=== PATIENT | male | born 1940 | race Caucasian/White ===

== ENCOUNTER 2023-09-10 10:30 | Outpatient (RCR) | payer MEDICARE, BC, SELFPAY ==
[2023-09-10] VITALS (12 sets, daily range): BP systolic 113–128; BP diastolic 65–79
[2023-09-10 11:00] LABS: % Basophils 0.8 % (0-2); % Eosinophils 3.8 % (0-6); % Immature Granulocytes 0.2 % (0-0.5); % Lymphocytes 22.5 % (20.5-51.1); % Monocytes 15.7 % (1.7-9.3); Absolute Eosinophils 0.2 10^3/uL (0-0.7); Absolute Lymphocytes 1.2 10^3/uL (1.2-3.4); Absolute Monocytes 0.8 10^3/uL (0.1-0.6); Hematocrit 40.6 % (39.0-52.0); Hemoglobin 13.9 g/dL (13.0-18.0); Mean Corp Hgb Conc. 34.2 g/dL (33.0-37.0); Mean Corpuscular Hgb 35.4 pg (27.0-31.0); Mean Corpuscular Volume 103.3 fL (80.0-94.0); Mean Platelet Volume 10.5 fL (7.4-10.4); Platelet Count 193 10^3/uL (130-400); Red Blood Cell Count 3.93 10^6/uL (4.70-6.10); Red Cell Dist. Width 13.2 % (11.5-14.5); White Blood Cell Count 5.2 10^3/uL (4.8-10.8)
[2023-09-10] MEDS: NSS 250 IV (11:08)
[2023-09-10] MEDS: REMICADE 250 MG IV (11:08)
[2023-09-10] MEDS: TYLENOL 650 MG PO (11:08)
[2023-09-10] MEDS: BENADRYL 25 MG PO (11:08)
[2023-09-10 12:04] LABS: ALT (SGPT) 16 U/L (0-50); AST (SGOT) 22 U/L (17-59); Albumin 4.3 g/dl (3.5-5.0); Alkaline Phosphatase 60 U/L (38-126); Total Bilirubin 0.6 mg/dl (0.2-1.3)
== END 2023-09-10 15:31 | disposition home or self-care (01) ==
LOC: OID 10:30
PROVIDERS: ATTENDING PHYSICIAN Specialist; FAMILY PHYSICIAN Internal Medicine
DX: M06.00 Rheumatoid arthritis without rheumatoid factor, unspecified site (principal); M06.09 Rheumatoid arthritis without rheumatoid factor, multiple sites
CPT/HCPCS: 80076; 85025; 96413; 96415; J1745

== ENCOUNTER 2023-11-13 06:52 | Day surgery (SDC) | payer MEDICARE, BC, SELFPAY ==
[2023-11-13 07:32] VITALS: BMI 26.3
== END 2023-11-13 08:40 | disposition home or self-care (01) ==
LOC: CATH 06:52
PROVIDERS: ATTENDING PHYSICIAN Internal Medicine Cardiovascular Disease; FAMILY PHYSICIAN Internal Medicine; OTHER PHYSICIAN Internal Medicine Cardiovascular Disease
DX: I48.3 Typical atrial flutter (principal); I48.0 Paroxysmal atrial fibrillation; I10 Essential (primary) hypertension; I49.1 Atrial premature depolarization; Z79.01 Long term (current) use of anticoagulants; G47.33 Obstructive sleep apnea (adult) (pediatric)
CPT/HCPCS: 92960; 93005

== ENCOUNTER 2024-01-26 08:24 | Day surgery (SDC) | payer MEDICARE, BC, SELFPAY ==
[2024-01-23 10:37] VITALS: BMI 26.5
[2024-01-26] VITALS (20 sets, daily range): BP systolic 111–130; BP diastolic 71–87; BMI 23.7
[2024-01-26 12:01] LABS: ACT-LR - POC 273 Seconds (116-155)
[2024-01-26 12:20] LABS: ACT-LR - POC 350 Seconds (116-155)
[2024-01-26 12:45] LABS: ACT-LR - POC 351 Seconds (116-155)
[2024-01-26 13:22] LABS: ACT-LR - POC 302 Seconds (116-155)
[2024-01-26 13:42] LABS: ACT-LR - POC 295 Seconds (116-155)
--- NOTE | 2024-01-26 14:46 | ITS.CL.ABL ---
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
Ablation
Procedure Report:
ELECTROPHYSIOLOGIC STUDY AND POSSIBLE ABLATION
DATE: January 26, 2024
Primary Care Provider: Dr. Layton Jacobs
INDICATION:
Symptomatic Atrial Fibrillation.
Persistent
HISTORY: See H and P.
Symptomatic AF, poorly controlled with attempted medical therapy. Prior PVI 2017 and 2018. Prior dual-chamber permanent pacemaker implantation for sick sinus syndrome.
Recurrent atrial fibrillation, symptomatic. This despite antiarrhythmic drug therapy with flecainide.
HAS-BLED: 1
Age
CHADSVASc: 3
HTN
Age
PRESENTING RHYTHM: SR
HISTORY: See H and P.
Symptomatic AF, poorly controlled with attempted medical therapy.
ANTIARRHYTHMIC DRUG: Flecainide
ANTICOAGULATION: Apixaban
'TIME-OUT': called and confirmed.
SEDATION/ANESTHESIA: provided via the anesthesia department using general anesthesia.
PROCEDURE:
Ultrasound Guidance performed by dc was utilized for femoral venous Vascular Access b/l.
A decapolar CS catheter was placed within the CS for mapping and pacing.
The intracardiac ultrasound catheter was positioned in the RA for continuous intracardiac ultrasound imaging.
Heparin bolus and infusion to target ACT at 300 -350 seconds was administered. Transseptal puncture was performed. This entailed advancing a sheath with dilator into the superior vena cava and withdrawing both (monitoring intracardiac ultrasound,
fluoroscopy and tip pressure) with the tip oriented toward the atrial septum. The fossa ovalis was engaged (indicated by sudden displacement of the sheath tip as well as tenting of the fossa seen on intracardiac ultrasound).
[employer] transseptal system was used. Left atrial catheter position was confirmed by echocardiographic imaging, pressure monitoring (LA mean pressure 5 mm Hg) and fluoroscopy. The sheath was advanced over the dilator and positioned in the left
atrium. At time of transseptal puncture he developed an atrial tachycardia at a cycle length of 400 ms
The multipolar mapping catheter was initially positioned through the transseptal sheath for high density mapping. Extensive activation as well as voltage mapping of the left and right atrium was performed. Entrainment from left and right atrial
sites was also performed. The tachycardia is a focal left atrial tachycardia arising from the interatrial septum anterior to the right sided pulmonary veins and close to the mitral valve annulus at approximately 10 o'clock position.
Geometry and voltage mapping was performed using the Qui.lt multipolar grid catheter. Navex was utilized for three-dimensional electroanatomical mapping.
A 3-D map was created using Navex. A 3-D reconstructed CT image was compared to the 3-D Navex map to assist in anatomic evaluation, mapping and ablation.
The [employer] Pulse Select PFA catheter and system was used for cardiac ablation. Catheter positioning was guided and confirmed using both I.C.E. and fluoroscopy.
Initially pulse electric field energy was delivered to this area but failed to alter the tachycardia. Patient is known to have recurrent atrial fibrillation and therefore neck step was to ablate the posterior wall of the left atrium. Of note the
pulmonary veins remained isolated except for an area of reconnection at the RSPV upper anterior quadrant. Pulse electric field energy was delivered to re-isolate the RSPV and to electrically isolate the posterior wall of the left atrium.
Tachycardia continued. Additional pulsed electric field energy was delivered to the area of earliest activation of the focal atrial tachycardia. This terminated the atrial tachycardia into a different tachycardia cycle length 450 ms. Entrainment
mapping as well as activation mapping finds this to be mitral annular flutter with a cord or of slow activation on the anterior septum between the eron of the right sided pulmonary veins in the mitral valve annulus. Pulsed electric field energy
delivery to this area slowed and then terminated the tachycardia. Programmed electrical stimulation then failed to induce any sustained arrhythmias.
Of note the Medtronic dual-chamber permanent pacemaker was interrogated prior to EP study and ablation and reinterrogated once the procedure was completed and all catheters removed from the body. This demonstrates normal stable function of the
permanent pacemaker and lead system with atrial lead impedance 437, RV lead impedance 400, atrial threshold 0.75 at 0.4 and RV threshold 1 V at 0.4 ms. Measured atrial amplitude is 1 mV and RV amplitude is 18 mV.
I.C.E. :
Pre-Ablation Post-Ablation
LVEF: 55 % 55 %
WMA: none none
Pericardial effusion: trace post trace post
COMPLICATIONS:
None
SUMMARY:
- Mapping and ablation to isolate the PVs (re-isolation RSPV)
- Additional AF ablation set after PVI (LA posterior wall ablation)
- Mapping and ablation of second and third tachycardias (LA septal tachycardia and LA mitral valve flutter)
- 3-D Electroanatomical Mapping
- Intracardiac Ultrasound
- Interrogation and reprogramming of dual-chamber permanent pacemaker
Post ablation, I discussed today's findings and results with the patient's , Charley
RECOMMENDATIONS:
- Observe in monitored bed.
- Maintain oral anticoagulation.
- Discontinue flecainide, continue metoprolol.
- Office visit with me in 3 months.
Copy to:
Dr. Layton Jacobs
--- NOTE | 2024-01-27 16:29 | W.PN.UPDATE ---
Update Note
Progress Note Update
Late entry post PVI note- Pt seen on 01/25 at 1730.
Pt seen post PVI. Bilat groin sites without ht/bleeding. OOB ambulating, urinating without difficulty. Post EKG APaced 70s. Resume eliquis tonight. Discontinue flecainide at this time. Followup at [facility] as scheduled. Home later today if groin
sites/tele remain stable.
== END 2024-01-26 18:23 | disposition home or self-care (01) ==
LOC: CATH 08:24
PROVIDERS: ATTENDING PHYSICIAN Internal Medicine Cardiovascular Disease; FAMILY PHYSICIAN Internal Medicine
DX: I48.19 Other persistent atrial fibrillation (principal); I48.92 Unspecified atrial flutter; I10 Essential (primary) hypertension; E78.5 Hyperlipidemia, unspecified; Z92.3 Personal history of irradiation; Z90.49 Acquired absence of other specified parts of digestive tract; Z95.0 Presence of cardiac pacemaker; R06.09 Other forms of dyspnea; I49.5 Sick sinus syndrome; Z85.46 Personal history of malignant neoplasm of prostate; D68.59 Other primary thrombophilia; M06.9 Rheumatoid arthritis, unspecified; M85.80 Other specified disorders of bone density and structure, unspecified site; E04.1 Nontoxic single thyroid nodule; N40.0 Benign prostatic hyperplasia without lower urinary tract symptoms; H40.9 Unspecified glaucoma; G47.33 Obstructive sleep apnea (adult) (pediatric); Z79.01 Long term (current) use of anticoagulants; Z79.899 Other long term (current) drug therapy; K66.0 Peritoneal adhesions (postprocedural) (postinfection); Z87.891 Personal history of nicotine dependence; I44.4 Left anterior fascicular block; Z98.890 Other specified postprocedural states; I31.39 Other pericardial effusion (noninflammatory)
CPT/HCPCS: C1732; C1733; C1769; C1730; C1894; C1892; C1766; 76937; 85347; 93005; 93655; 93656; 93657

== ENCOUNTER 2024-04-14 09:48 | Outpatient (RCR) | payer MEDICARE, BC, SELFPAY ==
[2024-03-31] VITALS (11 sets, daily range): BP systolic 96–132; BP diastolic 54–71
[2024-03-31] MEDS: BENADRYL 25 MG PO (09:41)
[2024-03-31] MEDS: TYLENOL 650 MG PO (09:41)
[2024-03-31] MEDS: REMICADE 250 MG IV (09:42)
[2024-03-31] MEDS: NSS 250 IV (09:42)
[2024-03-31 10:46] LABS: % Basophils 0.5 % (0-2); % Eosinophils 1.9 % (0-6); % Immature Granulocytes 0.4 % (0-0.5); % Neutrophils 74.2 % (42.2-75.2); Absolute Eosinophils 0.2 10^3/uL (0-0.7); Absolute Lymphocytes 0.9 10^3/uL (1.2-3.4); Hematocrit 31.3 % (39.0-52.0); Hemoglobin 10.8 g/dL (13.0-18.0); Mean Corp Hgb Conc. 34.5 g/dL (33.0-37.0); Mean Corpuscular Hgb 35.5 pg (27.0-31.0); Mean Platelet Volume 10.2 fL (7.4-10.4); Nucleated Red Blood Cells % 0 % (-); Platelet Count 299 10^3/uL (130-400); Red Blood Cell Count 3.04 10^6/uL (4.70-6.10); Red Cell Dist. Width 13.2 % (11.5-14.5); White Blood Cell Count 8.1 10^3/uL (4.8-10.8)
[2024-03-31 11:06] LABS: ALT (SGPT) 15 U/L (0-50); AST (SGOT) 22 U/L (17-59); Albumin 3.9 g/dl (3.5-5.0); Alkaline Phosphatase 57 U/L (38-126); Direct Bilirubin 0.2 mg/dl (0.0-0.4); Total Bilirubin 0.5 mg/dl (0.2-1.3); Total Protein 6.9 g/dl (6.3-8.2)
[2024-04-14] VITALS (11 sets, daily range): BP systolic 99–112; BP diastolic 60–73
[2024-04-14] MEDS: NSS 250 IV (10:16)
[2024-04-14] MEDS: BENADRYL 25 MG PO (10:16)
[2024-04-14] MEDS: TYLENOL 650 MG PO (10:16)
[2024-04-14] MEDS: REMICADE 250 MG IV (10:18)
== END 2024-04-15 09:40 | disposition home or self-care (01) ==
LOC: OID 09:48
PROVIDERS: ATTENDING PHYSICIAN Specialist; FAMILY PHYSICIAN Internal Medicine
DX: M06.00 Rheumatoid arthritis without rheumatoid factor, unspecified site (principal); M06.09 Rheumatoid arthritis without rheumatoid factor, multiple sites
CPT/HCPCS: 36415; 80076; 85025; 96413; 96415; J1745

== ENCOUNTER 2024-05-12 10:00 | Outpatient (RCR) | payer MEDICARE, BC, SELFPAY ==
[2024-05-12] VITALS (10 sets, daily range): BP systolic 101–119; BP diastolic 58–76
[2024-05-12] MEDS: NSS 250 IV (10:26)
[2024-05-12] MEDS: BENADRYL 25 MG PO (10:26)
[2024-05-12] MEDS: TYLENOL 650 MG PO (10:26)
[2024-05-12] MEDS: REMICADE 250 MG IV (10:39)
== END 2024-05-13 10:18 | disposition home or self-care (01) ==
LOC: OID 10:00
PROVIDERS: ATTENDING PHYSICIAN Specialist; FAMILY PHYSICIAN Internal Medicine
DX: M06.00 Rheumatoid arthritis without rheumatoid factor, unspecified site (principal); M06.09 Rheumatoid arthritis without rheumatoid factor, multiple sites
CPT/HCPCS: 96413; 96415; J1745

== ENCOUNTER 2024-07-01 09:55 | Outpatient (RCR) | payer MEDICARE, BC, SELFPAY ==
[2024-07-01] VITALS (10 sets, daily range): BP systolic 105–123; BP diastolic 62–70
[2024-07-01 10:16] LABS: % Basophils 0.7 % (0-2); % Lymphocytes 28.2 % (20.5-51.1); % Monocytes 13.2 % (1.7-9.3); % Neutrophils 52.9 % (42.2-75.2); Absolute Eosinophils 0.2 10^3/uL (0-0.7); Absolute Lymphocytes 1.3 10^3/uL (1.2-3.4); Absolute Monocytes 0.6 10^3/uL (0.1-0.6); Absolute Neutrophils 2.4 10^3/uL (1.4-6.5); Hematocrit 39.4 % (39.0-52.0); Hemoglobin 13.2 g/dL (13.0-18.0); Mean Corp Hgb Conc. 33.5 g/dL (33.0-37.0); Mean Corpuscular Hgb 34.4 pg (27.0-31.0); Mean Corpuscular Volume 102.6 fL (80.0-94.0); Mean Platelet Volume 10.6 fL (7.4-10.4); Platelet Count 185 10^3/uL (130-400); Red Blood Cell Count 3.84 10^6/uL (4.70-6.10); Red Cell Dist. Width 14.3 % (11.5-14.5); White Blood Cell Count 4.6 10^3/uL (4.8-10.8)
[2024-07-01] MEDS: NSS 250 IV (10:16)
[2024-07-01] MEDS: REMICADE 250 MG IV (10:17)
[2024-07-01] MEDS: BENADRYL 25 MG PO (10:17)
[2024-07-01] MEDS: TYLENOL 650 MG PO (10:17)
[2024-07-01 11:18] LABS: ALT (SGPT) 19 U/L (0-50); AST (SGOT) 29 U/L (17-59); Albumin 4.1 g/dl (3.5-5.0); Alkaline Phosphatase 63 U/L (38-126); Direct Bilirubin 0.1 mg/dl (0.0-0.4); Total Bilirubin 0.4 mg/dl (0.2-1.3); Total Protein 6.8 g/dl (6.3-8.2)
== END 2024-07-02 09:25 | disposition home or self-care (01) ==
LOC: OID 09:55
PROVIDERS: ATTENDING PHYSICIAN Specialist; FAMILY PHYSICIAN Internal Medicine
DX: M06.00 Rheumatoid arthritis without rheumatoid factor, unspecified site (principal); M06.09 Rheumatoid arthritis without rheumatoid factor, multiple sites
CPT/HCPCS: 80076; 85025; 96413; 96415; J1745

== ENCOUNTER 2024-08-12 10:03 | Outpatient (RCR) | payer MEDICARE, BC, SELFPAY ==
[2024-08-12] VITALS (10 sets, daily range): BP systolic 92–112; BP diastolic 57–76
[2024-08-12] MEDS: NSS 250 IV (10:23)
[2024-08-12] MEDS: TYLENOL 650 MG PO (10:24)
[2024-08-12] MEDS: REMICADE 250 MG IV (10:25)
[2024-08-12] MEDS: BENADRYL 25 MG PO (10:25)
== END 2024-08-13 10:11 | disposition home or self-care (01) ==
LOC: OID 10:03
PROVIDERS: ATTENDING PHYSICIAN Specialist; FAMILY PHYSICIAN Internal Medicine
DX: M06.00 Rheumatoid arthritis without rheumatoid factor, unspecified site (principal); M06.09 Rheumatoid arthritis without rheumatoid factor, multiple sites; I48.91 Unspecified atrial fibrillation; Z79.01 Long term (current) use of anticoagulants
CPT/HCPCS: 96413; 96415; J1745

== ENCOUNTER 2024-08-18 14:51 | Emergency (ER) | payer MEDICARE, BC, SELFPAY ==
[2024-08-18 14:57] VITALS: BP 123/79
--- NOTE | 2024-08-18 18:01 | ED.GENMED ---
History of Present Illness
General
Chief Complaint: Head Injury
Source: patient
Time Seen by Provider: 08/18/24 17:36
History of Present Illness
History of Present Illness:
84-year-old male with past medical history of atrial fibrillation, on Eliquis, previous prostate cancer status post radiation presenting to the emergency department for evaluation after he was hiking with his and sustained an accidental fall
resulting in laceration just above the right eyebrow. Bleeding controlled, tetanus up-to-date, no other injuries sustained. Patient denies any loss consciousness, significant headache, vomiting or any other concerns.
Past History
Past History
ED Past Medical History: Arrthythmia (afib) and HTN
ED Past Surgical History: Appendectomy, Tonsilectomy, Urological and Other
Social History
Tobacco: Non-smoker
Alcohol: None
Drug: None
Personal:
Living: with family
Employment: Employed
Family History
Family History: Negative Early CAD
Review of Systems
Review of Systems
All Other Systems: ROS reviewed and negative except as documented in HPI and ROS
Phy Exam
Physical Exam
Physical Exam:
GENERAL: Alert , in no apparent distress
EYE: conjunctiva clear
Head: Stellate laceration just above the right eyebrow measuring 1 cm in size, no active bleeding
NECK: Supple, no midline tenderness
ENT: mmm.
LUNGS: no acute respiratory distress
NEUROLOGICAL: Alert and oriented
SKIN: Warm and dry, skin intact.
MUSCULOSKELETAL: well perfused.
PSYCH: Normal and appropriate interaction.
Scores
Heart Failure Risk
Heart Failure Risk Score: Not Applicable
Heart Score for Chest Pain Patients
STEMI patient?: Not applicable
Withdrawal Assessment of Alcohol
Withdrawal Assessment Completed?: Not applicable
Course
Orders/Labs/Results
Orders:
Orders
08/18/24 14:[address] [CT Head W/o Iv Contrast] Urgent
Comment:
Reason For Exam: fall on thinners
Vital Signs
Initial and Last Documented VS:
Initial Vital Signs
Temp Pulse Resp BP Pulse Ox
97.2 F 82 20 123/79 98
08/18/24 14:57 08/18/24 14:57 08/18/24 14:57 08/18/24 14:57 08/18/24 14:57
Last Documented Vital Signs
Temp Pulse Resp BP Pulse Ox
97.2 F 82 20 123/79 98
08/18/24 14:57 08/18/24 14:57 08/18/24 14:57 08/18/24 14:57 08/18/24 14:57
Procedures
Laceration Closure
Right Eye brow:
Status of Wound: clean
Size of Wound in cm: 1
Description of Wound Edges: sharp
Preparation: cleaned with saline
Anesthesia: 1% Lidocaine with epi
Type of Closure: layered closure
Skin Closure Material: 6-0 nylon (4) and 6-0 vicryl (1)
MDM/Problems Addressed
Differential Diagnosis Includes:
superficial laceration, ICH, calvarial fracture, concussion
MDM/Problems Addressed:
84-year-old male presenting the ER for evaluation following an accidental slip and fall resulting in head injury/forehead laceration. Laceration repaired as above without difficulty. CT of the head was ordered due to patient's anticoagulated
status and ultimately negative for any acute intracranial pathology. Patient and were advised on wound care as well as return precautions to the ER. Suture removal in 5 to 7 days. Stable for discharge home.
*Radiology
Radiology exam reviewed: radiology read reviewed
*Pulse Oximetry
Patient hypoxic: no
*Critical Care Note
Total Time (30-74mins, 75-104mins- exclusive of procedures): Not Applicable
ED Attending Note
-
Portions of this chart may have been created with voice recognition software.� Occasional wrong word or��sound alike� substitutions may have occurred due to the inherent limitations of voice recognition software.
Discharge Plan
Departure
Patient Disposition: Home (Routine Discharge)
Date of Disposition: 08/18/24
Time of Disposition: 18:01
Patient with high blood pressure during this ER visit?: No
Discharge Problem:
Accidental fall, Forehead laceration
Instructions: Laceration Repair With Stitches (DC)
Prescriptions:
No Action
tamsulosin 0.4 MG capsule
0.4 mg PO HS
Eliquis 5 MG tablet
5 mg PO BID
latanoprost 1 DROP drops
1 drp BOTH EYES HS
lisinopril 5 MG tablet
5 mg PO DAILY
folic acid 0.4 MG tablet
0.4 mg PO DAILY
methotrexate sodium 2.5 MG tablet
15 mg PO TU
cyanocobalamin (vitamin B-12) 5,000 mcg Capsule
5,000 mcg PO DAILY
metoprolol succinate 25 MG tablet extended release 24 hr
25 mg PO BID
flecainide 50 mg Tablet
100 mg PO Q12H
amlodipine 5 mg Tablet
5 mg PO DAILY
cholecalciferol (vitamin D3) [Vitamin D3] 25 mcg (1,000 unit) Tablet
25 mcg PO HS
tadalafil [Cialis] 10 mg Tablet
10 mg PO DAILY PRN (Reason: ED)
Activity Restrictions/Additional Instructions:
Suture removal in 5-7 days
Interventions
Interventions:
*Risk Screen - Suicide Last Done: 08/18/24 14:57
*General Assessment Last Done: 08/18/24 18:06
*Neglect/Abuse Screening Last Done: 08/18/24 18:10
ED- Fall Risk Assessment Last Done: 08/18/24 18:05
*ED COVID-19 Vaccine History Last Done: 08/18/24 18:06
*Nursing Disposition Last Done: 08/18/24 19:02
ED- Neurological Assessment Last Done: 08/18/24 18:06
ED-Skin Assessment Last Done: 08/18/24 18:06
Discharge Date and Time
Discharge Date/Time: 08/18/24 18:20
Print Language: ITALIAN
--- NOTE | 2024-08-18 18:15 | EDRN ---
Reviewed discharge instructions with patient. Verbalized understanding. Ambulated with steady gait to the lobby.
== END 2024-08-18 18:20 | disposition home or self-care (01) ==
LOC: EMR 14:51
PROVIDERS: EMERGENCY PHYSICIAN Emergency Medicine; FAMILY PHYSICIAN Internal Medicine
DX: S01.81XA Laceration without foreign body of other part of head, initial encounter (principal); W01.0XXA Fall on same level from slipping, tripping and stumbling without subsequent striking against object, initial encounter; Y93.01 Activity, walking, marching and hiking; I48.91 Unspecified atrial fibrillation; I10 Essential (primary) hypertension; Z79.01 Long term (current) use of anticoagulants; Z85.46 Personal history of malignant neoplasm of prostate; Z90.49 Acquired absence of other specified parts of digestive tract; Z92.3 Personal history of irradiation
CPT/HCPCS: 99284; 12051; 70450

== ENCOUNTER → 2024-09-14 16:54 | Outpatient (REF) | payer MEDICARE, BC, SELFPAY | LOC: CLAB 16:54 | PROVIDERS: ATTENDING PHYSICIAN Surgery | DX: K61.1 Rectal abscess (principal) | CPT/HCPCS: 87075 ==

== ENCOUNTER 2024-09-21 09:58 | Outpatient (RCR) | payer MEDICARE, BC, SELFPAY ==
[2024-09-21] VITALS (11 sets, daily range): BP systolic 103–125; BP diastolic 62–82
[2024-09-21] MEDS: TYLENOL 650 MG PO (10:27)
[2024-09-21] MEDS: BENADRYL 25 MG PO (10:28)
[2024-09-21] MEDS: NSS 250 IV (10:28)
[2024-09-21] MEDS: REMICADE 250 MG IV (10:40)
[2024-09-21 11:55] LABS: % Basophils 0.6 % (0-2); % Eosinophils 2.5 % (0-6); % Immature Granulocytes 0.2 % (0-0.5); % Lymphocytes 28.6 % (20.5-51.1); % Monocytes 12.2 % (1.7-9.3); % Neutrophils 55.9 % (42.2-75.2); Absolute Eosinophils 0.1 10^3/uL (0-0.7); Absolute Lymphocytes 1.4 10^3/uL (1.2-3.4); Absolute Monocytes 0.6 10^3/uL (0.1-0.6); Absolute Neutrophils 2.7 10^3/uL (1.4-6.5); Hematocrit 36.9 % (39.0-52.0); Hemoglobin 12.6 g/dL (13.0-18.0); Mean Corp Hgb Conc. 34.1 g/dL (33.0-37.0); Mean Corpuscular Hgb 35.6 pg (27.0-31.0); Mean Corpuscular Volume 104.2 fL (80.0-94.0); Mean Platelet Volume 10.8 fL (7.4-10.4); Platelet Count 236 10^3/uL (130-400); Red Blood Cell Count 3.54 10^6/uL (4.70-6.10); Red Cell Dist. Width 13.1 % (11.5-14.5); White Blood Cell Count 4.8 10^3/uL (4.8-10.8)
[2024-09-21 12:42] LABS: ALT (SGPT) 22 U/L (0-50); AST (SGOT) 26 U/L (17-59); Albumin 4.2 g/dl (3.5-5.0); Alkaline Phosphatase 58 U/L (38-126); Direct Bilirubin 0.3 mg/dl (0.0-0.4); Total Bilirubin 0.6 mg/dl (0.2-1.3); Total Protein 6.6 g/dl (6.3-8.2)
== END 2024-09-22 09:43 | disposition home or self-care (01) ==
LOC: OID 09:58
PROVIDERS: ATTENDING PHYSICIAN Specialist; FAMILY PHYSICIAN Internal Medicine
DX: M06.00 Rheumatoid arthritis without rheumatoid factor, unspecified site (principal); M06.09 Rheumatoid arthritis without rheumatoid factor, multiple sites
CPT/HCPCS: 80076; 85025; 96413; 96415; J1745

== ENCOUNTER 2024-11-12 10:00 | Outpatient (RCR) | payer MEDICARE, BC, SELFPAY ==
[2024-11-12] VITALS (11 sets, daily range): BP systolic 102–117; BP diastolic 62–73
[2024-11-12] MEDS: TYLENOL 650 MG PO (10:25)
[2024-11-12] MEDS: BENADRYL 25 MG PO (10:26)
[2024-11-12] MEDS: NSS 250 IV (10:26)
[2024-11-12] MEDS: REMICADE 250 MG IV (10:39)
== END 2024-11-15 08:24 | disposition home or self-care (01) ==
LOC: OID 10:00
PROVIDERS: ATTENDING PHYSICIAN Specialist; FAMILY PHYSICIAN Internal Medicine
DX: M06.09 Rheumatoid arthritis without rheumatoid factor, multiple sites (principal)
CPT/HCPCS: 96365; 96366; 96367; J1745

== ENCOUNTER 2024-12-24 09:49 | Outpatient (RCR) | payer MEDICARE, BC, SELFPAY ==
[2024-12-24] VITALS (10 sets, daily range): BP systolic 112–120; BP diastolic 67–78
[2024-12-24 10:46] LABS: % Basophils 0.9 % (0-2); % Eosinophils 3.2 % (0-6); % Immature Granulocytes 0.2 % (0-0.5); % Lymphocytes 25.2 % (20.5-51.1); % Monocytes 13.6 % (1.7-9.3); % Neutrophils 56.9 % (42.2-75.2); Absolute Eosinophils 0.2 10^3/uL (0-0.7); Absolute Lymphocytes 1.2 10^3/uL (1.2-3.4); Absolute Monocytes 0.6 10^3/uL (0.1-0.6); Absolute Neutrophils 2.7 10^3/uL (1.4-6.5); Hematocrit 37.5 % (39.0-52.0); Hemoglobin 13.1 g/dL (13.0-18.0); Mean Corp Hgb Conc. 34.9 g/dL (33.0-37.0); Mean Corpuscular Hgb 36.1 pg (27.0-31.0); Mean Corpuscular Volume 103.3 fL (80.0-94.0); Mean Platelet Volume 10.9 fL (7.4-10.4); Nucleated Red Blood Cells % 0 % (-); Platelet Count 167 10^3/uL (130-400); Red Blood Cell Count 3.63 10^6/uL (4.70-6.10); Red Cell Dist. Width 13.8 % (11.5-14.5); White Blood Cell Count 4.7 10^3/uL (4.8-10.8)
[2024-12-24] MEDS: NSS 250 IV (10:49)
[2024-12-24] MEDS: TYLENOL 650 MG PO (10:50)
[2024-12-24] MEDS: BENADRYL 25 MG PO (10:50)
[2024-12-24] MEDS: REMICADE 250 MG IV (10:53)
[2024-12-24 11:11] LABS: ALT (SGPT) 17 U/L (0-50); AST (SGOT) 21 U/L (17-59); Alkaline Phosphatase 52 U/L (38-126); Direct Bilirubin 0.1 mg/dl (0.0-0.4); Total Bilirubin 0.6 mg/dl (0.2-1.3); Total Protein 6.6 g/dl (6.3-8.2)
== END 2024-12-27 08:07 | disposition home or self-care (01) ==
LOC: OID 09:49
PROVIDERS: ATTENDING PHYSICIAN Specialist; FAMILY PHYSICIAN Internal Medicine
DX: M06.00 Rheumatoid arthritis without rheumatoid factor, unspecified site (principal); M06.09 Rheumatoid arthritis without rheumatoid factor, multiple sites
CPT/HCPCS: 80076; 85025; 96413; 96415; J1745

== ENCOUNTER 2025-02-04 10:01 | Outpatient (RCR) | payer MEDICARE, BC, SELFPAY ==
[2025-02-04] VITALS (11 sets, daily range): BP systolic 87–109; BP diastolic 49–65
[2025-02-04] MEDS: ZYRTEC 10 MG PO (10:26)
[2025-02-04] MEDS: REMICADE 250 MG IV (10:26)
[2025-02-04] MEDS: TYLENOL 650 MG PO (10:26)
[2025-02-04] MEDS: NSS 250 IV (10:26)
== END 2025-02-07 10:39 | disposition home or self-care (01) ==
LOC: OID 10:01
PROVIDERS: ATTENDING PHYSICIAN Specialist; FAMILY PHYSICIAN Internal Medicine
DX: M06.09 Rheumatoid arthritis without rheumatoid factor, multiple sites (principal)
CPT/HCPCS: 96413; 96415; J1745

== ENCOUNTER 2025-03-30 09:59 | Outpatient (RCR) | payer MEDICARE, BC, SELFPAY ==
[2025-03-30] VITALS (10 sets, daily range): BP systolic 104–122; BP diastolic 65–81
[2025-03-30] MEDS: NSS 250 IV (10:29)
[2025-03-30] MEDS: TYLENOL 650 MG PO (10:29)
[2025-03-30] MEDS: REMICADE 250 MG IV (10:30)
[2025-03-30] MEDS: ZYRTEC 10 MG PO (10:30)
[2025-03-30 10:38] LABS: Hematocrit 34.8 % (39.0-52.0); Hemoglobin 12.4 g/dL (13.0-18.0); Mean Corp Hgb Conc. 35.6 g/dL (33.0-37.0); Mean Corpuscular Volume 103.0 fL (80.0-94.0); Nucleated Red Blood Cells % 0 % (-); Platelet Count 163 10^3/uL (130-400); Red Cell Dist. Width 13.4 % (11.5-14.5)
[2025-03-30 10:54] LABS: ALT (SGPT) 28 U/L (0-50); AST (SGOT) 25 U/L (17-59); Albumin 3.9 g/dl (3.5-5.0); Alkaline Phosphatase 47 U/L (38-126); Total Protein 6.6 g/dl (6.3-8.2)
== END 2025-03-31 10:48 | disposition home or self-care (01) ==
LOC: OID 09:59
PROVIDERS: ATTENDING PHYSICIAN Specialist; FAMILY PHYSICIAN Internal Medicine
DX: M06.09 Rheumatoid arthritis without rheumatoid factor, multiple sites (principal); M06.00 Rheumatoid arthritis without rheumatoid factor, unspecified site (principal)
CPT/HCPCS: 80076; 85025; 96413; 96415; J1745

== ENCOUNTER → 2025-05-23 12:14 | Outpatient (REF) | payer MEDICARE, BC, SELFPAY | LOC: REG 12:14 | PROVIDERS: ATTENDING PHYSICIAN Nurse Practitioner Family | DX: R79.89 Other specified abnormal findings of blood chemistry (principal) | CPT/HCPCS: 81050; 83835 ==

== ENCOUNTER 2025-05-31 09:53 | Outpatient (RCR) | payer MEDICARE, BC, SELFPAY ==
[2025-05-31] VITALS (11 sets, daily range): BP systolic 93–104; BP diastolic 59–64
[2025-05-31] MEDS: NSS 250 IV (10:19)
[2025-05-31] MEDS: ZYRTEC 10 MG PO (10:19)
[2025-05-31] MEDS: TYLENOL 650 MG PO (10:19)
[2025-05-31] MEDS: REMICADE 250 MG IV (10:20)
== END 2025-06-01 11:53 | disposition home or self-care (01) ==
LOC: OID 09:53
PROVIDERS: ATTENDING PHYSICIAN Specialist; FAMILY PHYSICIAN Internal Medicine
DX: M06.00 Rheumatoid arthritis without rheumatoid factor, unspecified site (principal); M06.09 Rheumatoid arthritis without rheumatoid factor, multiple sites
CPT/HCPCS: 96413; 96415; J1745